=== PATIENT | female | born 1940 | race Caucasian/White ===

== ENCOUNTER 2016-05-25 14:52 | Outpatient (CLI) | payer MEDICARE, OTHER ==
[2014-12-01 12:17] VITALS: BP 184/54
--- NOTE | 2016-05-25 16:10 | Diagnostic Imaging Report ---
[facility] [address] [facility].[address] [address] Report Submission Date: May 25, 2016 3:19:31 PM CDT Patient Study Name: IVONE CHIU Date: May 25, 2016 3:01:43 PM CDT Modality Type: CR Gender: F Description: CHEST : 42 Institution: [facility] Physician: LUCIA ALANIS - SELINA Right ribs History: Right lower rib pain after injury Findings: Multilevel cervicothoracic fusion hardware and distal right clavicle resection are observed. Visualized portions of the lungs are clear. Heart size and pulmonary vascularity are normal. The right ribs are unremarkable without fracture or focal bone lesion. However, the 11th and 12th ribs are difficult to fully visualize due to osteopenia and soft tissue superimposition. Impression: No definite evidence of displaced right rib fracture. Cervicothoracic fusion noted. Electronically signed on May 25, 2016 3:19:31 PM CDT by: Raoul HOPPER
== END 2016-05-25 14:53 ==
LOC: RAD 14:52
PROVIDERS: ATTEND Family Medicine
DX: R07.81 Pleurodynia (principal)
CPT/HCPCS: 71100

== ENCOUNTER 2016-07-30 10:35 | Outpatient (CLI) | payer MEDICARE, OTHER ==
[2014-12-01 12:17] VITALS: BP 184/54
--- NOTE | 2016-07-30 15:43 | Diagnostic Imaging Report ---
LINDSAY CATES [facility] [address] [facility] [address] [address] Report Submission Date: Jul 30, 2016 12:53:20 PM CDT Patient Study Name: IVONE CHIU Date: Jul 30, 2016 10:52:49 AM CDT Modality Type: CR Gender: F Description: SPINE : 42 Institution: [facility] Physician: LINDSAY CATES Examination: Plain film lumbar spine History: Low back discomfort Comparison exam: 11 September 2014 Findings: 3 views of the lumbar spine demonstrate normal height. Disc space narrowing from L1/2 through L5/S1. Listhesis of L5 on S1 approximately 5%. No anterior compression. Curvature to the left on the anterior post orif film. Atherosclerotic disease involving the aortoiliac vessel. Impression: Lumbar degenerative changes and curvature. No compression deformity. Electronically signed on Jul 30, 2016 12:53:20 PM CDT by: Woody HOPPER
== END 2016-07-30 10:36 ==
LOC: RAD 10:35
PROVIDERS: ATTEND Family Medicine
DX: M54.5 Low back pain (principal)
CPT/HCPCS: 72100

== ENCOUNTER 2016-08-03 09:41 | Outpatient (CLI) | payer MEDICARE, OTHER ==
[2014-12-01 12:17] VITALS: BP 184/54
--- NOTE | 2016-08-03 15:31 | Diagnostic Imaging Report ---
[facility] [address] [facility].[address] [address] Report Submission Date: Aug 03, 2016 3:10:47 PM CDT Patient Study Name: IVONE CHIU Date: Aug 03, 2016 10:17:49 AM CDT Modality Type: CR Gender: F Description: PELVIS : 42 Institution: [facility] Physician: LINDSAY CATES - SELINA Right hip AP and oblique views Clinical history: Right hip pain No visible fracture, dislocation or bone destruction. No significant narrowing of the right hip joint space. Impression: Normal right hip Electronically signed on Aug 03, 2016 3:10:47 PM CDT by: Eric HOPPER
== END 2016-08-03 09:42 ==
LOC: RAD 09:41
PROVIDERS: ATTEND Family Medicine
DX: M25.551 Pain in right hip (principal)
CPT/HCPCS: 73502

== ENCOUNTER 2016-10-14 09:47 | Outpatient (CLI) | payer MEDICARE, OTHER ==
[2014-12-01 12:17] VITALS: BP 184/54
--- NOTE | 2016-10-14 21:28 | Diagnostic Imaging Report ---
LINDSAY CATES [address] [facility] [address] [address] Report Submission Date: Oct 14, 2016 2:49:37 PM CDT Patient Study Name: IVONE CHIU Date: Oct 14, 2016 9:59:42 AM CDT Modality Type: CR Gender: F Description: SHOULDER : 42 Institution: Physician: LINDSAY CATES Examination: Plain film shoulder History: Discomfort Comparison exams: None provided Findings: 3 views of the shoulder demonstrate normal cortical margins. No evidence for fracture or dislocation. Osteopenia. Neck fixation hardware. Minimal degenerative changes chronic clavicular joint. No soft tissue abnormality. Impression: Osteopenia and early acromioclavicular joint degenerative changes. No acute osseous process. Electronically signed on Oct 14, 2016 2:49:37 PM CDT by: Woody HOPPER
== END 2016-10-14 09:50 ==
LOC: RAD 09:47
PROVIDERS: ATTEND Family Medicine
DX: M85.819 Other specified disorders of bone density and structure, unspecified shoulder (principal)
CPT/HCPCS: 73030

== ENCOUNTER 2016-12-28 10:22 | Outpatient (CLI) | payer MEDICARE, OTHER ==
[2014-12-01 12:17] VITALS: BP 184/54
--- NOTE | 2016-12-28 14:10 | Diagnostic Imaging Report ---
LUCIA ALANIS [facility] [address] [facility] [address] [address] Report Submission Date: Dec 28, 2016 10:46:04 AM PROGRAM DEVELOPMENT SPECIALIST Patient Study Name: IVONE CHIU Date: Dec 28, 2016 10:30:42 AM PROGRAM DEVELOPMENT SPECIALIST Modality Type: CR Gender: F Description: LOWER EXTREMITY : 42 Institution: [facility] Physician: LUCIA ALANIS Examination: Plain film ankle History: Ankle discomfort. Findings: 3 views of the ankle demonstrates normal cortical margins. No fracture or dislocation. Talar dome is intact. No soft tissue swelling. No joint effusion. Impression: No acute osseous process. Electronically signed on Dec 28, 2016 10:46:04 AM PROGRAM DEVELOPMENT SPECIALIST by: Woody HOPPER
== END 2016-12-28 10:23 ==
LOC: RAD 10:22
PROVIDERS: ATTEND Family Medicine
DX: M25.571 Pain in right ankle and joints of right foot (principal)
CPT/HCPCS: 73610